=== PATIENT | female | born 1980 | race American Indian/Alaskan Native ===

== ENCOUNTER 2016-04-07 23:50 | Inpatient (IN) | payer BC ==
[2016-04-08] MEDS ORDERED: MOTRIN PO ONE (00:36)
[2016-04-08 01:16] LABS: Basophils % (Auto) 0.2 % (0.0-1.8); Eosinophils % (Auto) 0.1 % (0.0-4.3); Hematocrit 42.8 % (30.3-42.9); Hemoglobin 14.2 gm/dl (10.1-14.3); Mean Corpuscular HGB Conc 33 % (30-34); Mean Corpuscular Hemoglobin 28 pg (28-32); Mean Corpuscular Volume 83 fl (79-97); Platelet Count 290 K/mm3 (140-440); Red Blood Count 5.13 M/mm3 (3.65-5.03); Red Cell Distribution Width 14.4 % (13.2-15.2); White Blood Count 7.5 K/mm3 (4.5-11.0)
[2016-04-08 01:24] LABS: BUN/Creatinine Ratio 15.55; Blood Urea Nitrogen 14 mg/dL (7-17); Calcium 8.7 mg/dL (8.4-10.2); Carbon Dioxide 25 mmol/L (22-30); Chloride 98.1 mmol/L (98-107); Glucose 129 mg/dL (65-100); Potassium 4.1 mmol/L (3.6-5.0); Sodium 137 mmol/L (137-145)
[2016-04-08 01:44] LABS: Anion Gap 18 mmol/L
[2016-04-08 03:08] LABS: Bilirubin,Urine NEG (Negative); Blood,Urine SM (Negative); Ketones,Urine NEG (Negative); Leukocyte Esterase,Urine NEG (Negative); Mucus,Urine 1+ /HPF; Nitrite,Urine NEG (Negative); Protein,Urine <15 mg/dL mg/dL (Negative); Urobilinogen,Urine < 2.0 mg/dL (<2.0)
--- NOTE | 2016-04-08 07:28 | XRay Report ---
CHEST 2 VIEWS INDICATION: Shortness of breath. COMPARISON: None similar at this institution. FINDINGS: Frontal and lateral chest radiographs limited due to patient's body habitus, though demonstrate mild hypoinflation with slight exaggerated, though grossly normal cardiomediastinal silhouette and clear lungs. No acute osseous process. CONCLUSION: Limited exam without definite acute disease, as described. Please correlate. Thank you for the opportunity to participate in this patient's care.
[2016-04-08] MEDS ORDERED: TYLENOL PO ONE (20:03)
[2016-04-08] MEDS ORDERED: LEVAQUIN 750MG/150ML 150 ML IV ONE (21:40)
[2016-04-08] MEDS ORDERED: NACL ONE ×2 (21:42→23:08)
--- NOTE | 2016-04-08 22:47 | History and Physical Report ---
History of Present Illness Chief complaint: Fever, Cough History of present illness: 35 YO Female with Morbid Obesity, Asthma, DM presents to ED for evaluation. Pt states that she has experienced fever, to 102, Productive cough over the past week. Pt states that her symptoms have been persistent and accompanied by generalized fatigue. Pt denies CP, Palpitation, NVD, Unilateral leg swelling, hemoptysis, Prolonged travel/immobility, Individual/Family history of DVT/PE, syncope, hemopysis, trauma, or recent ill contacts. Past History Past Medical History: diabetes Past Surgical History: No surgical history, Other (reviewed) Social history: single, lives with family. denies: smoking, alcohol abuse Family history: diabetes, hypertension Medications and Allergies Allergies Allergy/AdvReac Type Severity Reaction Status Date / Time risperidone [From Risperdal] Allergy Anaphylaxis Verified 04/08/16 00:35 tetanus & diphtheria toxoids Allergy Anaphylaxis Verified 04/08/16 00:35 Home Medications Medication Instructions Recorded Confirmed Last Taken Type Albuterol Sulfate [Ventolin HFA] 2 puff IH Q4H PRN 04/08/16 04/08/16 1 Day Ago History 8 Amoxicillin [Amoxicillin TAB] 875 mg PO BID 04/08/16 04/08/16 1 Day Ago History 875 Beclomethasone Dipropionate [Qvar] 8.7 gm IH DAILY 04/08/16 04/08/16 1 Day Ago History 8.7 Benzonatate [Tessalon Perles] 100 mg PO Q8HR PRN 04/08/16 04/08/16 1 Day Ago History 100 metFORMIN [Glucophage] 500 mg PO QDAY 04/08/16 04/08/16 1 Day Ago History 500 Active Meds: Active Medications Levofloxacin/Dextrose (Levaquin 750mg/150ml) 150 mls @ 100 mls/hr IV ONCE ONE Stop: 04/08/16 23:09 Review of Systems All systems: negative Constitutional: fever Respiratory: cough Exam - Constitutional Vitals: Temp Pulse Resp BP Pulse Ox 101.0 F H 90 18 131/80 96 04/08/16 21:00 04/08/16 21:00 04/08/16 21:00 04/08/16 21:00 04/08/16 21:00 General appearance: Present: obese - EENT Eyes: Present: PERRL ENT: hearing intact, clear oral mucosa - Neck Neck: Present: supple, normal ROM - Respiratory Respiratory effort: normal Respiratory: bilateral: diminished - Cardiovascular Heart Sounds: Present: S1 & S2. Absent: rub, click - Extremities Extremities: pulses symmetrical, No edema Peripheral Pulses: within normal limits - Abdominal General gastrointestinal: Present: soft, non-tender, non-distended, normal bowel sounds Female genitourinary: Present: normal - Integumentary Integumentary: Present: clear, warm, dry - Musculoskeletal Musculoskeletal: gait normal, strength equal bilaterally - Psychiatric Psychiatric: appropriate mood/affect, intact judgment & insight - Neurologic Neurologic: CNII-XII intact, moves all extremities Results - Labs CBC & Chem 7: 04/08/16 00:52 04/08/16 00:52 Labs: Abnormal lab results 04/08/16 04/08/16 Range/Units 00:52 00:52 RBC 5.13 H (3.65-5.03) M/mm3 [place] % (Auto) 10.4 H (0.0-7.3) % Lymph # 1.1 L (1.2-5.4) K/mm3 Seg Neutrophils % 75.0 H (40.0-70.0) % Glucose 129 H (65-100) mg/dL Assessment and Plan - Patient Problems (1) Pneumonia Current Visit: Yes Status: Acute Plan to address problem: Pneumonia protocol: IV abx, supportive care, blood cultures, nebs, early ambulation, pulmonary toilet. (2) Bronchitis Current Visit: Yes Status: Acute Plan to address problem: IV abs, pulmonary toilet. (3) Diabetes Current Visit: Yes Status: Acute Plan to address problem: ADA diet, insulin, accu check (4) DVT prophylaxis Current Visit: Yes Status: Acute
[2016-04-08 23:19] LABS: Bacteria,Urine 1+ /HPF (Negative); Bilirubin,Urine NEG (Negative); Blood,Urine MOD (Negative); Ketones,Urine NEG (Negative); Leukocyte Esterase,Urine NEG (Negative); Mucus,Urine 1+ /HPF; Nitrite,Urine NEG (Negative); Protein,Urine <15 mg/dL mg/dL (Negative); Urobilinogen,Urine < 2.0 mg/dL (<2.0)
--- NOTE | 2016-04-08 23:49 | Emergency Department Report ---
ED General Adult HPI - General Chief complaint: Dyspnea/Respdistress Stated complaint: FEVER/COUGH/THANG Time Seen by Provider: 04/08/16 20:58 Source: patient Mode of arrival: Ambulatory Limitations: No Limitations - History of Present Illness Initial comments: Patient states that she traveled to [place] about 1-2 weeks ago. Last Wednesday she went to a urgent care for sinus congestion and URI. She was placed on Augmentin. She states that her symptoms have been persistent. She feels tired. She was found to have a fever of 102 orally here today. She states that she is coughing but not producing much sputum. She does not complain of chest pain. She has had some shortness of breath but not at rest. She denies chest pain. She denies leg pain. She complains of generalized weakness. She is a type II diabetic. -: Gradual, week(s) Location: head (congestion no headache) Severity scale (0 -10): 0 Consistency: intermittent Improves with: none Worsens with: none Associated Symptoms: denies other symptoms Treatments Prior to Arrival: other (Augmentin) - Related Data Home Medications Medication Instructions Recorded Confirmed Last Taken Albuterol Sulfate [Ventolin HFA] 2 puff IH Q4H PRN 04/08/16 04/08/16 1 Day Ago 8 Amoxicillin [Amoxicillin TAB] 875 mg PO BID 04/08/16 04/08/16 1 Day Ago 875 Beclomethasone Dipropionate [Qvar] 8.7 gm IH DAILY 04/08/16 04/08/16 1 Day Ago 8.7 Benzonatate [Tessalon Perles] 100 mg PO Q8HR PRN 04/08/16 04/08/16 1 Day Ago 100 metFORMIN [Glucophage] 500 mg PO QDAY 04/08/16 04/08/16 1 Day Ago 500 Allergies Allergy/AdvReac Type Severity Reaction Status Date / Time risperidone [From Risperdal] Allergy Anaphylaxis Verified 04/08/16 00:35 tetanus & diphtheria toxoids Allergy Anaphylaxis Verified 04/08/16 00:35 ED Review of Systems ROS: Stated complaint: FEVER/COUGH/THANG Other details as noted in HPI Constitutional: denies: chills, fever Eyes: denies: eye pain, eye discharge, vision change ENT: denies: ear pain, throat pain Respiratory: cough, SOB with exertion (occasional). denies: wheezing Cardiovascular: denies: chest pain, palpitations Endocrine: no symptoms reported Gastrointestinal: denies: abdominal pain, nausea, diarrhea Genitourinary: denies: urgency, dysuria, discharge Musculoskeletal: denies: back pain, joint swelling, arthralgia Skin: denies: rash, lesions Neurological: denies: headache, weakness, paresthesias Psychiatric: denies: anxiety, depression Hematological/Lymphatic: denies: easy bleeding, easy bruising ED Past Medical Hx - Past Medical History Previous Medical History?: Yes Hx Diabetes: Yes Hx Asthma: Yes - Surgical History Past Surgical History?: No - Social History Smoking Status: Never Smoker Substance Use Type: Alcohol - Medications Home Medications: Home Medications Medication Instructions Recorded Confirmed Last Taken Type Albuterol Sulfate [Ventolin HFA] 2 puff IH Q4H PRN 04/08/16 04/08/16 1 Day Ago History 8 Amoxicillin [Amoxicillin TAB] 875 mg PO BID 04/08/16 04/08/16 1 Day Ago History 875 Beclomethasone Dipropionate [Qvar] 8.7 gm IH DAILY 04/08/16 04/08/16 1 Day Ago History 8.7 Benzonatate [Tessalon Perles] 100 mg PO Q8HR PRN 04/08/16 04/08/16 1 Day Ago History 100 metFORMIN [Glucophage] 500 mg PO QDAY 04/08/16 04/08/16 1 Day Ago History 500 ED Physical Exam - General Limitations: No Limitations General appearance: alert, in no apparent distress, obese - Head Head exam: Present: atraumatic, normocephalic - Eye Eye exam: Present: normal appearance. Absent: scleral icterus - ENT ENT exam: Present: mucous membranes moist - Neck Neck exam: Present: normal inspection. Absent: tenderness, meningismus - Respiratory Respiratory exam: Present: rhonchi (some basilar rhonchi bilaterally). Absent: respiratory distress - Cardiovascular Cardiovascular Exam: Present: regular rate, normal rhythm. Absent: systolic murmur, diastolic murmur, rubs, gallop - GI/Abdominal GI/Abdominal exam: Present: soft, normal bowel sounds. Absent: distended, tenderness, guarding, rebound, rigid, organomegaly, mass - Extremities Exam Extremities exam: Present: normal inspection, full ROM, normal capillary refill. Absent: tenderness, pedal edema, joint swelling - Back Exam Back exam: Present: normal inspection - Neurological Exam Neurological exam: Present: alert, oriented X3, CN II-XII intact. Absent: motor sensory deficit - Psychiatric Psychiatric exam: Present: normal affect, normal mood - Skin Skin exam: Present: warm, dry, intact, normal color. Absent: rash ED Course Vital Signs 04/08/16 04/08/16 04/08/16 00:36 00:50 06:25 Temperature 102.2 F H 99.5 F Pulse Rate 117 H 101 H Respiratory 20 18 Rate Blood Pressure 176/103 163/104 Blood Pressure [Right] O2 Sat by Pulse 96 98 Oximetry 04/08/16 04/08/16 04/08/16 19:57 20:00 21:00 Temperature 102.4 F H 101.0 F H Pulse Rate 88 90 Respiratory 18 18 18 Rate Blood Pressure Blood Pressure 147/92 131/80 [Right] O2 Sat by Pulse 96 96 Oximetry - Reevaluation(s) Reevaluation #1: Patient is a diabetic with a persistent febrile illness. Her chest x-ray isn't sufficient to exclude pneumonia. I started her on Levaquin. She has had a CT of her chest. Results are pending. Her pulse oximetry was as low as 92%. Therefore she was admitted to the hospitalist service for further care and evaluation. 04/09/16 00:07 ED Medical Decision Making - Lab Data Result diagrams: 04/08/16 00:52 04/08/16 00:52 Laboratory Results - last 24 hr 04/08/16 04/08/16 04/08/16 00:52 00:52 02:13 WBC 7.5 RBC 5.13 H Hgb 14.2 Hct 42.8 MCV 83 MCH 28 MCHC 33 RDW 14.4 Plt Count 290 Lymph % (Auto) 14.3 [place] % (Auto) 10.4 H Eos % (Auto) 0.1 Baso % (Auto) 0.2 Lymph # 1.1 L [place] # 0.8 Eos # 0.0 Baso # 0.0 Seg Neutrophils % 75.0 H Seg Neutrophils # 5.6 Sodium 137 Potassium 4.1 Chloride 98.1 Carbon Dioxide 25 Anion Gap 18 BUN 14 Creatinine 0.9 Estimated GFR > 60 BUN/Creatinine Ratio 15.55 Glucose 129 H Calcium 8.7 Troponin T < 0.010 Urine Color Yellow Urine Turbidity Clear Urine pH 6.0 Ur Specific [place] 1.024 Urine Protein <15 mg/dl Urine Glucose (UA) Neg Urine Ketones Neg Urine Blood Sm Urine Nitrite Neg Urine Bilirubin Neg Urine Urobilinogen < 2.0 Ur Leukocyte Esterase Neg Urine WBC (Auto) 1.0 Urine RBC (Auto) 6.0 U Epithel Cells (Auto) 7.0 Urine Bacteria (Auto) Urine Mucus 1+ Urine HCG, Qual Negative 04/08/16 23:00 WBC RBC Hgb Hct MCV MCH MCHC RDW Plt Count Lymph % (Auto) [place] % (Auto) Eos % (Auto) Baso % (Auto) Lymph # [place] # Eos # Baso # Seg Neutrophils % Seg Neutrophils # Sodium Potassium Chloride Carbon Dioxide Anion Gap BUN Creatinine Estimated GFR BUN/Creatinine Ratio Glucose Calcium Troponin T Urine Color Yellow Urine Turbidity Clear Urine pH 5.0 Ur Specific [place] 1.016 Urine Protein <15 mg/dl Urine Glucose (UA) 50 Urine Ketones Neg Urine Blood Mod Urine Nitrite Neg Urine Bilirubin Neg Urine Urobilinogen < 2.0 Ur Leukocyte Esterase Neg Urine WBC (Auto) 1.0 Urine RBC (Auto) 1.0 U Epithel Cells (Auto) 3.0 Urine Bacteria (Auto) 1+ Urine Mucus 1+ Urine HCG, Qual - Radiology Data interpreted by me: Chest x-ray showed hypoventilation. Infiltrate was impossible to totally exclude. CT the chest showed no acute process. No pulmonary embolism. Critical care attestation.: If time is entered above; I have spent that time in minutes in the direct care of this critically ill patient, excluding procedure time. ED Disposition Clinical Impression: Febrile illness, acute, Hypoxia Type 2 diabetes mellitus Qualifiers: Diabetes mellitus complication status: without complication Diabetes mellitus terminal gauger insulin use: without mcc use Qualified Code(s): E11.9 - Type 2 diabetes mellitus without complications Disposition: OP ADMITTED IP TO THIS HOSP Is pt being admited?: Yes Does the pt Need Aspirin: No Condition: Stable Instructions: Diabetes Mellitus Type 2 in Adults (ED) Referrals: PRIMARY CARE, [Primary Care Provider] - 3-5 Days Time of Disposition: 00:09
--- NOTE | 2016-04-08 23:58 | Cat Scan Report ---
FINAL REPORT PROCEDURE: CT ANGIO CHEST TECHNIQUE: Computerized tomographic angiography of the chest was performed after the IV injection of iodinated nonionic contrast including image processing. The image data was postprocessed using 2-dimensional multiplanar reformatted (MPR) and 3-dimensional (MIP and/or volume rendered) techniques. HISTORY: Shortness of breath. Recent travel COMPARISON: No prior studies are available for comparison. FINDINGS: Heart and pericardium: Normal. Thoracic aorta: Normal. Pulmonary vasculature: Normal. Lymph nodes: No enlarged thoracic lymph nodes. Lungs: Right lung base atelectasis. Platelike atelectasis in the left lung base. No confluent airspace infiltrate is seen. Pleural space: No effusion, thickening, or pneumothorax. Musculoskeletal structures: No significant abnormality. Upper abdominal structures: No significant abnormality. IMPRESSION: No evidence of pulmonary emboli
[2016-04-09] MEDS ORDERED: PROAIR IH PRN (00:03)
[2016-04-09] MEDS ORDERED: D50W (25GM) IV PRN (00:10)
[2016-04-09] MEDS ORDERED: PROVENTIL IH PRN (00:22)
--- NOTE | 2016-04-09 03:23 | Admit Criteria Form ---
Admission Criteria Documentation: FEBRILE ILLNESS, WITHOUT FOCAL INFECTION Clinical Indications for Admission to Inpatient Care (Place 'X' for any and all applicable criteria): Admission is indicated for ANY ONE of the following (1)(2)(3): [ ] I. Bacteremia [ ]II. Suspected or identified specific infection requiring hospitalization (eg, meningitis, endocarditis) [ ]III. Hemodynamic instability [ ]IV. Altered mental status [ ]V. Failure or unavailability of outpatient antimicrobial treatment [ ]. Hypoxemia [ ]VII. Seizures [ ]VIII. High-risk febrile neutropenia [ ]IX. Need for parenteral antibiotic in patient who is likely to abuse vascular access device (eg, injection drug user) [A](7) [ ]X. Temperature greater than 104.9 degrees F (40.5 degrees C) (oral) [X ]XI. Inpatient admission required rather than observation care because of ANY ONE of the following: [ ]a) Specific infection identified that is too severe for outpatient treatment or observation care trial [X ]b) Metabolic disorder (eg, hypoglycemia, hyperglycemia, metabolic acidosis) that is severe or persistent [ ]c) Temperature greater than 103.1 degrees F (39.5 degrees C) ( oral) that is not responsive to observation care treatment [ ]d) IV fluid to replace significant ongoing (eg, for over 24 hours) losses (> 3 L/m2 per day) [ ]e) Supplemental oxygen or respiratory treatments for over 24 hours that is performable only in acute inpatient setting [ ]f) Parenteral nutrition regimen need that must be implemented on inpatient basis [ ]g) Strict or protective (eg, laminar flow) isolation [ ]h) Other condition, treatment or monitoring requiring inpatient admission Extended stay beyond goal length of stay may be needed for(1)(3) [ ]a) Sepsis or septic shock(22) [ ]b) Positive blood cultures [ ]c) Insufficient oral intake [ ]d) High-risk febrile neutropenia(29)(30) [ ]e) Continued fever and clinical instability [ ]f) Clinically active comorbid illness (e.g,heart failure, renal failure , diabetes) The original [facility] content created by [facility] has been revised. The portions of the content which have been revised are identified through the use of italic text or in bold, and [facility] has neither reviewed nor approved the modified material. All other unmodified content is copyright [facility]. Please see references footnoted in the original [facility] edition 2016 Admission Criteria Met: Yes
[2016-04-09] MEDS: TESSALON PERLES PO PRN (04:53)
[2016-04-09] MEDS ORDERED: NON-FORMULARY (Beclomethasone Dipropionate [Qvar] 8.7 GM) IH SCH (10:00)
[2016-04-09] MEDS: ROCEPHIN/NS 1 GM/50 ML 50 ML IV SCH (11:16)
[2016-04-09] MEDS: NOVOLOG SUB-Q SCH ×4 (11:16→23:00)
[2016-04-09] MEDS: ZITHROMAX 500 MG in NACL 0.9% 250ML 250 ML IV SCH (11:22)
--- NOTE | 2016-04-09 19:30 | Progress Note ---
Assessment and Plan Assessment and plan: 1. Acute bronchitis - started on antibiotics; add decongestants; continue pulmonary toileting, oxygen as needed D-dimer elevated, but CTA chest negative for PE 2. Asthma - continue inhaled bronchodilators 3. Diabetes - metformin on hold as she underwent CTA; Accu-Cheks and SSI 4. Morbid obesity - counseled regarding importance of losing weight and lifestyle changes 5. ISAIAH/OHS - most likely, but refusing pulmonary referral and sleep study 6. DVT prophylaxis History Interval history: c/o cough, congestion and difficulty falling asleep Hospitalist Physical - Constitutional Vitals: Temp Pulse Resp BP Pulse Ox 100.6 F H 105 H 18 103/57 96 04/09/16 12:24 04/09/16 13:40 04/09/16 13:40 04/09/16 12:24 04/09/16 12:24 General appearance: Present: no acute distress, other ( morbidly obese) - EENT Eyes: Present: PERRL, EOM intact. Absent: scleral icterus, conjunctival injection - Neck Neck: Present: supple, normal ROM. Absent: enlarged thyroid, masses or JVD - Respiratory Respiratory effort: normal Respiratory: bilateral: diminished (due to body habitus), rhonchi, negative: wheezing - Cardiovascular Rhythm: regular Heart Sounds: Present: S1 & S2. Absent: systolic murmur - Extremities Extremities: no ischemia - Abdominal General gastrointestinal: soft, non-tender, non-distended, normal bowel sounds - Integumentary Integumentary: Present: warm, dry. Absent: jaundice, rash - Psychiatric Psychiatric: cooperative - Neurologic Neurologic: CNII-XII intact, no focal deficits Results - Labs CBC & Chem 7: 04/08/16 00:52 04/08/16 00:52 Labs: Laboratory Last Values WBC 7.5 K/mm3 (4.5-11.0) 04/08/16 00:52 RBC 5.13 M/mm3 (3.65-5.03) H 04/08/16 00:52 Hgb 14.2 gm/dl (10.1-14.3) 04/08/16 00:52 Hct 42.8 % (30.3-42.9) 04/08/16 00:52 MCV 83 fl (79-97) 04/08/16 00:52 MCH 28 pg (28-32) 04/08/16 00:52 MCHC 33 % (30-34) 04/08/16 00:52 RDW 14.4 % (13.2-15.2) 04/08/16 00:52 Plt Count 290 K/mm3 (140-440) 04/08/16 00:52 Lymph % (Auto) 14.3 % (13.4-35.0) 04/08/16 00:52 [place] % (Auto) 10.4 % (0.0-7.3) H 04/08/16 00:52 Eos % (Auto) 0.1 % (0.0-4.3) 04/08/16 00:52 Baso % (Auto) 0.2 % (0.0-1.8) 04/08/16 00:52 Lymph # 1.1 K/mm3 (1.2-5.4) L 04/08/16 00:52 [place] # 0.8 K/mm3 (0.0-0.8) 04/08/16 00:52 Eos # 0.0 K/mm3 (0.0-0.4) 04/08/16 00:52 Baso # 0.0 K/mm3 (0.0-0.1) 04/08/16 00:52 Seg Neutrophils % 75.0 % (40.0-70.0) H 04/08/16 00:52 Seg Neutrophils # 5.6 K/mm3 (1.8-7.7) 04/08/16 00:52 D-Dimer 475.99 ng/mlDDU (0-234) H 04/09/16 07:30 Sodium 137 mmol/L (137-145) 04/08/16 00:52 Potassium 4.1 mmol/L (3.6-5.0) 04/08/16 00:52 Chloride 98.1 mmol/L (98-107) 04/08/16 00:52 Carbon Dioxide 25 mmol/L (22-30) 04/08/16 00:52 Anion Gap 18 mmol/L 04/08/16 00:52 BUN 14 mg/dL (7-17) 04/08/16 00:52 Creatinine 0.9 mg/dL (0.7-1.2) 04/08/16 00:52 Estimated GFR > 60 ml/min 04/08/16 00:52 BUN/Creatinine Ratio 15.55 % 04/08/16 00:52 Glucose 129 mg/dL (65-100) H 04/08/16 00:52 POC Glucose 143 (70-105) H 04/09/16 12:15 Calcium 8.7 mg/dL (8.4-10.2) 04/08/16 00:52 Troponin T < 0.010 ng/mL (0.00-0.029) 04/08/16 00:52 Urine Color Yellow (Yellow) 04/08/16 23:00 Urine Turbidity Clear (Clear) 04/08/16 23:00 Urine pH 5.0 (5.0-7.0) 04/08/16 23:00 Ur Specific [place] 1.016 (1.003-1.030) 04/08/16 23:00 Urine Protein <15 mg/dl mg/dL (Negative) 04/08/16 23:00 Urine Glucose (UA) 50 mg/dL (Negative) 04/08/16 23:00 Urine Ketones Neg mg/dL (Negative) 04/08/16 23:00 Urine Blood Mod (Negative) 04/08/16 23:00 Urine Nitrite Neg (Negative) 04/08/16 23:00 Urine Bilirubin Neg (Negative) 04/08/16 23:00 Urine Urobilinogen < 2.0 mg/dL (<2.0) 04/08/16 23:00 Ur Leukocyte Esterase Neg (Negative) 04/08/16 23:00 Urine WBC (Auto) 1.0 /HPF (0.0-6.0) 04/08/16 23:00 Urine RBC (Auto) 1.0 /HPF (0.0-6.0) 04/08/16 23:00 U Epithel Cells (Auto) 3.0 /HPF (0-13.0) 04/08/16 23:00 Urine Bacteria (Auto) 1+ /HPF (Negative) 04/08/16 23:00 Urine Mucus 1+ /HPF 04/08/16 23:00 Urine HCG, Qual Negative (Negative) 04/08/16 02:13 - Imaging and Cardiology Chest x-ray: image reviewed (no acute findings, but poor quality study due to body habitus) CT scan - chest: report reviewed (no PE)
[2016-04-09] MEDS: ROBITUSSIN DM PO PRN (20:49)
[2016-04-09] MEDS: AMBIEN PO PRN (23:09)
[2016-04-10] MEDS: TESSALON PERLES PO PRN ×2 (02:31→22:19)
[2016-04-10] MEDS: NOVOLOG SUB-Q SCH ×4 (08:00→22:23)
[2016-04-10] MEDS: TYLENOL PO PRN ×3 (09:00→18:00)
[2016-04-10] MEDS: ROBITUSSIN DM PO PRN ×3 (09:00→22:04)
[2016-04-10] MEDS: ZITHROMAX 500 MG in NACL 0.9% 250ML 250 ML IV SCH (10:30)
[2016-04-10] MEDS: ROCEPHIN/NS 1 GM/50 ML 50 ML IV SCH (11:00)
--- NOTE | 2016-04-10 18:50 | Progress Note ---
Assessment and Plan Assessment and plan: 1. Acute bronchitis - started on antibiotics; add decongestants; continue pulmonary toileting, oxygen as needed D-dimer elevated, but CTA chest negative for PE 2. Asthma - continue inhaled bronchodilators 3. Diabetes - metformin on hold as she underwent CTA; Accu-Cheks and SSI 4. Morbid obesity - counseled regarding importance of losing weight and lifestyle changes 5. ISAIAH/OHS - most likely, but refusing pulmonary referral and sleep study 6. DVT prophylaxis Hospitalist Physical - Constitutional Vitals: Temp Pulse Resp BP Pulse Ox 98.2 F 83 20 117/53 97 04/10/16 17:00 04/10/16 17:00 04/10/16 17:00 04/10/16 17:00 04/10/16 09:27 General appearance: Present: no acute distress, other ( morbidly obese) Results - Labs CBC & Chem 7: 04/08/16 00:52 04/08/16 00:52 Labs: Laboratory Last Values WBC 7.5 K/mm3 (4.5-11.0) 04/08/16 00:52 RBC 5.13 M/mm3 (3.65-5.03) H 04/08/16 00:52 Hgb 14.2 gm/dl (10.1-14.3) 04/08/16 00:52 Hct 42.8 % (30.3-42.9) 04/08/16 00:52 MCV 83 fl (79-97) 04/08/16 00:52 MCH 28 pg (28-32) 04/08/16 00:52 MCHC 33 % (30-34) 04/08/16 00:52 RDW 14.4 % (13.2-15.2) 04/08/16 00:52 Plt Count 290 K/mm3 (140-440) 04/08/16 00:52 Lymph % (Auto) 14.3 % (13.4-35.0) 04/08/16 00:52 [place] % (Auto) 10.4 % (0.0-7.3) H 04/08/16 00:52 Eos % (Auto) 0.1 % (0.0-4.3) 04/08/16 00:52 Baso % (Auto) 0.2 % (0.0-1.8) 04/08/16 00:52 Lymph # 1.1 K/mm3 (1.2-5.4) L 04/08/16 00:52 [place] # 0.8 K/mm3 (0.0-0.8) 04/08/16 00:52 Eos # 0.0 K/mm3 (0.0-0.4) 04/08/16 00:52 Baso # 0.0 K/mm3 (0.0-0.1) 04/08/16 00:52 Seg Neutrophils % 75.0 % (40.0-70.0) H 04/08/16 00:52 Seg Neutrophils # 5.6 K/mm3 (1.8-7.7) 04/08/16 00:52 D-Dimer 475.99 ng/mlDDU (0-234) H 04/09/16 07:30 Sodium 137 mmol/L (137-145) 04/08/16 00:52 Potassium 4.1 mmol/L (3.6-5.0) 04/08/16 00:52 Chloride 98.1 mmol/L (98-107) 04/08/16 00:52 Carbon Dioxide 25 mmol/L (22-30) 04/08/16 00:52 Anion Gap 18 mmol/L 04/08/16 00:52 BUN 14 mg/dL (7-17) 04/08/16 00:52 Creatinine 0.9 mg/dL (0.7-1.2) 04/08/16 00:52 Estimated GFR > 60 ml/min 04/08/16 00:52 BUN/Creatinine Ratio 15.55 % 04/08/16 00:52 Glucose 129 mg/dL (65-100) H 04/08/16 00:52 POC Glucose 155 (70-105) H 04/10/16 11:44 Calcium 8.7 mg/dL (8.4-10.2) 04/08/16 00:52 Troponin T < 0.010 ng/mL (0.00-0.029) 04/08/16 00:52 Urine Color Yellow (Yellow) 04/08/16 23:00 Urine Turbidity Clear (Clear) 04/08/16 23:00 Urine pH 5.0 (5.0-7.0) 04/08/16 23:00 Ur Specific [place] 1.016 (1.003-1.030) 04/08/16 23:00 Urine Protein <15 mg/dl mg/dL (Negative) 04/08/16 23:00 Urine Glucose (UA) 50 mg/dL (Negative) 04/08/16 23:00 Urine Ketones Neg mg/dL (Negative) 04/08/16 23:00 Urine Blood Mod (Negative) 04/08/16 23:00 Urine Nitrite Neg (Negative) 04/08/16 23:00 Urine Bilirubin Neg (Negative) 04/08/16 23:00 Urine Urobilinogen < 2.0 mg/dL (<2.0) 04/08/16 23:00 Ur Leukocyte Esterase Neg (Negative) 04/08/16 23:00 Urine WBC (Auto) 1.0 /HPF (0.0-6.0) 04/08/16 23:00 Urine RBC (Auto) 1.0 /HPF (0.0-6.0) 04/08/16 23:00 U Epithel Cells (Auto) 3.0 /HPF (0-13.0) 04/08/16 23:00 Urine Bacteria (Auto) 1+ /HPF (Negative) 04/08/16 23:00 Urine Mucus 1+ /HPF 04/08/16 23:00 Urine HCG, Qual Negative (Negative) 04/08/16 02:13
[2016-04-10] MEDS: MUCINEX ER PO SCH (22:01)
[2016-04-10] MEDS: AMBIEN PO PRN (22:03)
[2016-04-11] MEDS: ROBITUSSIN DM PO PRN ×2 (05:35→16:10)
[2016-04-11] MEDS: FIORICET PO PRN ×2 (07:55→13:17)
[2016-04-11] MEDS: NOVOLOG SUB-Q SCH ×3 (08:49→16:30)
[2016-04-11 10:21] VITALS: BP 109/72
[2016-04-11] MEDS: MUCINEX ER PO SCH (10:21)
[2016-04-11] MEDS: ROCEPHIN/NS 1 GM/50 ML 50 ML IV SCH (10:22)
[2016-04-11] MEDS: ZITHROMAX 500 MG in NACL 0.9% 250ML 250 ML IV SCH (11:00)
[2016-04-11] MEDS: TESSALON PERLES PO PRN (16:10)
--- NOTE | 2016-04-11 16:26 | Discharge Summary ---
Providers - Providers Date of Admission: 04/09/16 00:00 Date of discharge: 04/11/16 Attending physician: ISA NATH Primary care physician: AILYN KHAN MD Hospitalization Condition: Stable Disposition: DISCHARGED TO HOME OR SELFCARE Time spent for discharge: 35 min Core Measure Documentation - Palliative Care Palliative Care/ Comfort Measures: Not Applicable - Core Measures Any of the following diagnoses?: none Exam - Constitutional Vitals: Temp Pulse Resp BP Pulse Ox 98.3 F 80 18 109/72 100 04/11/16 10:07 04/11/16 10:07 04/11/16 10:07 04/11/16 10:07 04/11/16 10:07 Plan Activity: advance as tolerated Diet: low cholesterol, low salt, diabetic Follow up with: PRIMARY CARE, [Primary Care Provider] - 3-5 Days Prescriptions: metFORMIN [Glucophage] 500 mg PO QDAY #60 tablet guaiFENesin ER [Mucinex ER] 600 mg PO BID #20 tablet Beclomethasone Dipropionate [Qvar] 8.7 gm IH DAILY #1 aer.w.adap Benzonatate [Tessalon Perles] 100 mg PO Q8HR PRN #20 capsule PRN Reason: Cough Albuterol Sulfate [Ventolin HFA] 2 puff IH Q4H PRN #1 hfa.aer.ad PRN Reason: Shortness Of Breath Azithromycin [Zithromax INJ] 500 mg IV Q24HR #2 vial
== END 2016-04-11 19:00 | disposition home or self-care (01) | DRG 194 ==
LOC: ED 23:50 → 3A 04-09 → 2B-SURG 04-09 03:16
PROVIDERS: ADMIT Internal Medicine; ATTEND Internal Medicine
DX: J18.9 Pneumonia, unspecified organism (principal); Z68.43 Body mass index [BMI] 50.0-59.9, adult; J20.9 Acute bronchitis, unspecified; E11.9 Type 2 diabetes mellitus without complications; E66.01 Morbid (severe) obesity due to excess calories; J45.909 Unspecified asthma, uncomplicated; Z88.8 Allergy status to other drugs, medicaments and biological substances; Z88.7 Allergy status to serum and vaccine; Z79.899 Other long term (current) drug therapy; Z79.84 Long term (current) use of oral hypoglycemic drugs; Z83.3 Family history of diabetes mellitus; Z82.49 Family history of ischemic heart disease and other diseases of the circulatory system
CPT/HCPCS: 36415; 71020; 80048; 81001; 81025; 82962; 84484; 85025; 85379; 87040; 87086; 94640; 96365; 96366; J0456; J0696; J1956; J7050